=== PATIENT | male | born 1935 | race Caucasian/White ===

== ENCOUNTER 2018-08-19 13:18 | Observation (INO) ==
[2018-08-19] MEDS ORDERED: ONDANSETRON 4 MG/2 ML VIAL IV ONE (14:55)
[2018-08-19] MEDS ORDERED: HYDROmorphone 2 MG/1 ML VIAL IV STA (14:55)
[2018-08-19 15:06] LABS: Basophils # 0.1 10*3/uL (0.0-0.2); Basophils % 0.4 % (0.0-0.8); Eosinophils % 0.1 % (0.00-10.9); Hematocrit 49.3 VOL% (42.0-52.0); Hemoglobin 16.6 GM/DL (14.0-18.0); Immature Granulocytes % 0.6 %; Immature Granulocytes Absolute 0.13 #; Lymphocytes # 1.3 10*3/uL (1.4-4.0); Lymphocytes % 6.3 % (21.2-54.2); Mean Corpuscular HGB Conc 33.7 GM/DL (32-36); Mean Platelet Volume 10.2 FL (9.6-12.0); Monocytes % 4.9 % (1.7-12.7); Neutrophils % 87.7 % (38.7-73.9); Platelet Count 239 T/CUMM (130-400); Red Blood Count 5.48 MC/CUMM (3.8-5.5); Red Cell Distribution Width 12.7 % (9.3-17.3); White Blood Count 20.4 T/CUMM (4-12)
[2018-08-19 15:30] LABS: Albumin 4.6 G/DL (3.4-5.0); Bilirubin,Total 1.2 MG/DL (0.2-1.0); Calcium 9.5 MG/DL (8.5-10.1); Total Protein 8.4 G/DL (6.4-8.3)
[2018-08-19 15:48] LABS: Band Neutrophils 1 % (0-10); Lymphocytes 6 % (20-55); Segmented Neutrophils 92 % (50-85); Total Cells Counted 100
[2018-08-19 15:49] LABS: Platelet Estimate Normal
[2018-08-19 16:05] LABS: Apearance,Urine CLEAR (Clear); Bilirubin,Urine Negative (Negative); Blood, Urine Negative (Negative); Glucose,Urine (UA) Negative (Negative); Ketones,Urine Negative (Negative); Nitrite,Urine Negative (Negative); Protein,Urine 30 MG/DL; RBC,Urine 5 /HPF (0-4); Squamous Epithelial Cell,Urine Occasional /HPF (0-10); Urine Color Yellow (Yellow); Urine Specific Gravity > 1.060 (1.001-1.035); Urine Urobilinogen < 2.0 EU/DL (0.2-1.0); WBC,Urine <1 /HPF (0-6)
[2018-08-19] MEDS ORDERED: cefOXitin 2,000 MG in SYRINGE 1 EACH IV ONE (16:38)
[2018-08-19] MEDS ORDERED: TISSUE ADHESIVE 1 EACH APPLICATOR TOP ONE (16:57)
[2018-08-19] MEDS ORDERED: BUPIVACAINE MPF 0.25% /EPI 30 ML VIAL ONE (16:58)
[2018-08-19] MEDS ORDERED: LIDOCAINE 1%/EPI INJ 20 ML VIAL ONE (16:58)
[2018-08-19] MEDS ORDERED: SEVOFLURANE 1 UNIT/15 MINUTE INH ONE (18:11)
[2018-08-19] MEDS ORDERED: PROPOFOL 200 MG/20 ML VIAL IV ONE (18:11)
[2018-08-19] MEDS ORDERED: ETOMIDATE 40 MG/20 ML VIAL IV ONE (18:12)
[2018-08-19] MEDS ORDERED: fentaNYL 100 MCG/2 ML VIAL ONE (18:12)
[2018-08-19] MEDS ORDERED: KETOROLAC 30 MG/1 ML VIAL ONE (18:12)
[2018-08-19] MEDS ORDERED: GLYCOPYRROLATE 0.4 MG/2 ML VIAL ONE (18:12)
[2018-08-19] MEDS ORDERED: ONDANSETRON 4 MG/2 ML VIAL ONE ×2 (18:12→18:28)
[2018-08-19] MEDS ORDERED: DEXAMETHASONE 4 MG/1 ML VIAL ONE (18:12)
[2018-08-19] MEDS ORDERED: SUCCINYLCHOLINE 200 MG/10 ML VIAL ONE (18:13)
[2018-08-19] MEDS ORDERED: LACTATED RINGERS 1,000 ML IV ONE (18:13)
[2018-08-19] MEDS ORDERED: NEOSTIGMINE 10 MG/10 ML VIAL ONE (18:13)
[2018-08-19] MEDS ORDERED: ROCURONIUM 100 MG/10 ML VIAL IV ONE (18:13)
[2018-08-19] MEDS ORDERED: PHENYLEPHRINE 1 MG/10 ML SYRINGE IV ONE (18:13)
[2018-08-19] MEDS ORDERED: hydrALAZINE 20 MG/1 ML VIAL ONE (18:14)
[2018-08-19] MEDS ORDERED: HYDROmorphone 2 MG/1 ML VIAL ONE (18:28)
[2018-08-19] MEDS ORDERED: HYDROmorphone 2 MG/1 ML VIAL IV PRN ×2 (18:34→22:33)
[2018-08-19] MEDS ORDERED: ONDANSETRON 4 MG/2 ML VIAL IV PRN ×2 (18:34→22:33)
[2018-08-19] MEDS ORDERED: hydrALAZINE 20 MG/1 ML VIAL IV ONE (18:36)
[2018-08-19] MEDS ORDERED: PROMETHAZINE 25 MG/1 ML VIAL IM PRN (22:33)
[2018-08-19] MEDS ORDERED: KETOROLAC 15 MG/1 ML VIAL IV PRN (22:33)
[2018-08-19 22:54] LABS: Basophils % 0.3 % (0.0-0.8); Eosinophils % 0.1 % (0.00-10.9); Hematocrit 42.1 VOL% (42.0-52.0); Hemoglobin 13.8 GM/DL (14.0-18.0); Immature Granulocytes % 0.8 %; Immature Granulocytes Absolute 0.12 #; Lymphocytes # 0.2 10*3/uL (1.4-4.0); Lymphocytes % 1.5 % (21.2-54.2); Mean Corpuscular HGB Conc 32.8 GM/DL (32-36); Mean Corpuscular Volume 91.5 FL (87-102); Mean Platelet Volume 10.6 FL (9.6-12.0); Monocytes % 2.4 % (1.7-12.7); Neutrophils % 94.9 % (38.7-73.9); Platelet Count 149 T/CUMM (130-400); White Blood Count 15.6 T/CUMM (4-12)
[2018-08-19 23:10] LABS: Calcium 8.4 MG/DL (8.5-10.1); Osmolality,Calculated 286.4 MOS/KG (273-304)
[2018-08-19 23:39] LABS: Band Neutrophils 5 % (0-10); Lymphocytes 2 % (20-55); Platelet Estimate Adequate; Segmented Neutrophils 91 % (50-85); Total Cells Counted 100
[2018-08-20] MEDS: LACTATED RINGERS 1,000 ML IV SCH ×4 (00:50→23:11)
[2018-08-20] MEDS: ALBUTEROL 2.5 MG/3 ML NEB RESP TX PRN ×2 (01:35→20:48)
[2018-08-20 05:12] LABS: Basophils # 0.1 10*3/uL (0.0-0.2); Basophils % 0.3 % (0.0-0.8); Hematocrit 40.4 VOL% (42.0-52.0); Hemoglobin 13.2 GM/DL (14.0-18.0); Immature Granulocytes % 1.9 %; Lymphocytes # 0.3 10*3/uL (1.4-4.0); Lymphocytes % 1.6 % (21.2-54.2); Mean Corpuscular HGB Conc 32.7 GM/DL (32-36); Mean Corpuscular Volume 92.2 FL (87-102); Mean Platelet Volume 10.7 FL (9.6-12.0); Monocytes % 5.1 % (1.7-12.7); Neutrophils % 91.1 % (38.7-73.9); Platelet Count 158 T/CUMM (130-400); Red Blood Count 4.38 MC/CUMM (3.8-5.5); Red Cell Distribution Width 13.1 % (9.3-17.3)
[2018-08-20 05:34] LABS: Calcium 8.4 MG/DL (8.5-10.1)
[2018-08-20 06:01] LABS: Lymphocytes 1 % (20-55); Metamyelocytes 1 %; Platelet Estimate Decreased; Polychromasia Few; Segmented Neutrophils 91 % (50-85); Total Cells Counted 100
[2018-08-20] MEDS ORDERED: LACTATED RINGERS 1,000 ML IV ONE (07:39)
[2018-08-20] MEDS ORDERED: ENOXAPARIN 40 MG/0.4 ML SYRINGE SUBCUT SCH (17:00)
[2018-08-20] MEDS: TAMSULOSIN 0.4 MG CAPSULE PO SCH (20:28)
[2018-08-21 05:07] LABS: Basophils % 0.1 % (0.0-0.8); Eosinophils % 0.1 % (0.00-10.9); Hematocrit 37.6 VOL% (42.0-52.0); Hemoglobin 12.3 GM/DL (14.0-18.0); Immature Granulocytes % 1.5 %; Immature Granulocytes Absolute 0.22 #; Lymphocytes # 0.9 10*3/uL (1.4-4.0); Lymphocytes % 6.2 % (21.2-54.2); Mean Corpuscular HGB Conc 32.7 GM/DL (32-36); Mean Corpuscular Volume 92.8 FL (87-102); Mean Platelet Volume 11.5 FL (9.6-12.0); Monocytes % 5.2 % (1.7-12.7); Neutrophils % 86.9 % (38.7-73.9); Platelet Count 125 T/CUMM (130-400); Red Blood Count 4.05 MC/CUMM (3.8-5.5); Red Cell Distribution Width 13.2 % (9.3-17.3); White Blood Count 14.4 T/CUMM (4-12)
[2018-08-21 05:27] LABS: Calcium 8.1 MG/DL (8.5-10.1); Osmolality,Calculated 291.3 MOS/KG (273-304)
[2018-08-21 05:37] LABS: Band Neutrophils 2 % (0-10); Eosinophils 1 % (0-10); Hypochromasia Slight; Lymphocytes 7 % (20-55); Ovalocytes Slight; Platelet Estimate Normal; Segmented Neutrophils 88 % (50-85); Total Cells Counted 100
[2018-08-21] MEDS: LACTATED RINGERS 1,000 ML IV SCH (07:07)
[2018-08-21] MEDS ORDERED: guaiFENesin 200 MG/10 ML UDCUP PO PRN (07:58)
[2018-08-21] MEDS ORDERED: POLYVINYL ALCOHOL 1.4% OPH SOLN 15 ML BOTTLE BOTH EYES PRN (07:58)
[2018-08-21] MEDS ORDERED: OMEGA 3 ACID ETHYL ESTERS 1 GM CAPSULE PO SCH (09:00)
[2018-08-21] MEDS ORDERED: PANTOPRAZOLE 40 MG TABLET PO SCH (09:00)
[2018-08-21] MEDS ORDERED: amLODIPine 10 MG TABLET PO SCH (09:00)
[2018-08-21] MEDS ORDERED: TAMSULOSIN 0.4 MG CAPSULE PO SCH (09:00)
[2018-08-21] MEDS ORDERED: TRIAMCINOLONE 0.1% CREAM 15 GM TUBE TOP SCH (09:00)
[2018-08-21] MEDS ORDERED: hydroCHLOROthiazide 12.5 MG CAPSULE PO SCH (09:00)
[2018-08-21] MEDS ORDERED: METOPROLOL SUCCINATE XL 100 MG TABLET PO SCH (09:00)
[2018-08-21] MEDS ORDERED: ASPIRIN EC 81 MG TABLET PO SCH (09:00)
[2018-08-21] MEDS ORDERED: valACYclovir 500 MG TABLET PO SCH (09:00)
[2018-08-21] MEDS: TAMSULOSIN 0.4 MG CAPSULE PO SCH (09:21)
[2018-08-21] MEDS ORDERED: IPRATROPIUM 500 MCG/2.5 ML NEB RESP TX SCH (11:00)
[2018-08-21 11:18] VITALS: BP 104/59
[2018-08-21] MEDS ORDERED: ALBUTEROL 2.5 MG/3 ML NEB RESP TX PRN (13:00)
== END 2018-08-21 11:30 | disposition home or self-care (01) ==
LOC: N.ED 13:18 → N.EDINP 13:18 → N.3E 19:16
PROVIDERS: ADMIT Surgery; ATTEND Surgery